=== PATIENT | male | born 1965 | race Caucasian/White ===

== ENCOUNTER 2024-10-28 03:35 | Emergency (ER) | payer OTHER, MEDICARE ==
--- NOTE | 2024-10-28 03:49 | ERPHSYRPT ---
- History of Present Illness Time Seen by Provider: 10/28/24 03:49 Source: patient, EMS Exam Limitations: no limitations Physician History: This is a morbidly obese 58-year-old white male patient who receives his medical care primarily at the [facility] and was brought to the emergency department this morning with a complaint of left ankle and left foot pain after slipping on the ice and falling. He did not hit his head and he has no complaints of head or neck pain or injury. The patient has a history of hypertension, hyperlipidemia, diabetes and gastroesophageal reflux disease. He cannot bear weight on this left ankle as it is very tender. Occurred: just prior to arrival Quality: aching Severity of Pain-Max: moderate Severity of Pain-Current: moderate Lower Extremities Pain: foot: left, ankle: left Modifying Factors: Improves With: movement Associated Symptoms: unable to bear weight Allergies/Adverse Reactions: No Known Drug Allergies Allergy (Verified 10/28/24 04:08) Home Medications: Cetirizine HCl [Zyrtec] 10 mg PO DAILY 05/28/23 [History] Empagliflozin [Jardiance] 10 mg PO DAILY 05/28/23 [History] Gabapentin 300 mg PO BID 05/28/23 [History] Omeprazole 20 mg PO DAILY 05/28/23 [History] Simvastatin [Zocor] 0.5 tab PO HS 05/28/23 [History] Tizanidine HCl [Zanaflex] 4 mg PO HS 05/28/23 [History] carvediloL [Carvedilol] 6.25 mg PO BID 05/28/23 [History] Aspirin 81 gm Chew [Baby Aspirin 81 mg Chew] 1 tab PO DAILY 10/28/24 [History] Semaglutide [Ozempic] 1 mg SQ WEEKLY 10/28/24 [History] Hx Tetanus, Diphtheria Vaccination/Date Given: No Hx Influenza Vaccination/Date Given: No Hx Pneumococcal Vaccination/Date Given: Yes Travel Risk - International Travel Have you traveled outside of the country in past 3 weeks: No - Vaccine Status Hx Covid Vaccintation/Booster/Date Given: No - Review of Systems Constitutional: No Symptoms Eyes: No Symptoms Ears, Nose, & Throat: No Symptoms Respiratory: No Symptoms Cardiac: No Symptoms Abdominal/Gastrointestinal: No Symptoms Genitourinary Symptoms: No Symptoms Musculoskeletal: Fall, Injury Skin: No Symptoms Neurological: No Symptoms Psychological: No Symptoms Endocrine: No Symptoms Hematologic/Lymphatic: No Symptoms Immunological/Allergic: No Symptoms All Other Systems: Reviewed and Negative - Past Medical History Pertinent Past Medical History: Yes Neurological History: Peripheral Neuropathy ENT History: Cataracts, Macular Degeneration, Other Cardiac History: High Cholesterol, Hypertension Respiratory History: Pneumonia, Sleep Apnea Endocrine Medical History: Diabetes Type II Musculoskeletal History: Osteoarthritis GI Medical History: GERD, Hernia History: No Pertinent History Psycho-Social History: No Pertinent History Male Reproductive Disorders: No Pertinent History Other Medical History: legal blind, bleed on rt eye, low platelets - Past Surgical History Past Surgical History: Yes Neuro Surgical History: No Pertinent History Cardiac: No Pertinent History Respiratory: No Pertinent History Gastrointestinal: Appendectomy, Other Genitourinary: No Pertinent History Musculoskeletal: No Pertinent History Male Surgical History: No Pertinent History Other Surgical History: L knee, carpal tunnel Significant Family History: no pertinent family hx - Social History Smoking Status: Former smoker - Social Determinants of Health Will the patient participate in the screening: Yes Do you worry about a steady place to live?: No In the past 12 months,have you had to go without utilities?: No Transportation Issues: No Has anyone in your support network made you feel unsafe?: No Have you or anyone in your house had to go w/o enough food: No - Nursing Vital Signs Nursing Vital Signs: Initial Vital Signs Temperature 98.7 F 10/28/24 03:48 Pulse Rate 81 10/28/24 03:48 Respiratory Rate 20 10/28/24 03:48 Blood Pressure 106/60 10/28/24 03:48 O2 Sat by Pulse Oximetry 99 10/28/24 03:48 Pain Scale Pain Intensity 4 - Physical Exam General Appearance: no apparent distress, alert, obese Eyes, Ears, Nose, Throat Exam: normal ENT inspection, moist mucous membranes Neck Exam: normal inspection, non-tender, supple, full range of motion Cardiovascular/Respiratory Exam: chest non-tender, no respiratory distress Gastrointestinal/Abdominal Exam: non-tender Back Exam: normal inspection, normal range of motion, No CVA tenderness, No vertebral tenderness Hips Exam: bilateral: non-tender, normal inspection, normal range of motion, no evidence of injury Legs Exam: bilateral leg: non-tender, normal inspection, normal range of motion, no evidence of injury Knees Exam: bilateral knee: non-tender, normal inspection, normal range of motion, no evidence of injury Ankle Exam: right ankle: non-tender, normal inspection, normal range of motion, no evidence of injury, left ankle: bone tenderness, soft tissue tenderness, swelling Foot Exam: right foot: non-tender, normal inspection, normal range of motion, no evidence of injury, left foot: bone tenderness, soft tissue tenderness, swelling Neuro/Tendon Exam: normal sensation, normal motor functions, normal tendon functions, responds to pain, no evidence tendon injury Mental Status Exam: alert, oriented x 3, cooperative Skin Exam: normal color, warm, dry SpO2 Interpretation: normal O2 Delivery: Room Air - Course Nursing assessment & vital signs reviewed: Yes Ordered Tests: Active Orders 24 hr Category Date Time Status Crutches STAT Care 10/28/24 04:39 Ordered Splint STAT Care 10/28/24 04:39 Ordered ANKLE (3 VIEWS) Stat Exams 10/28/24 03:45 Taken FOOT (MINIMUM 3 VIEWS) Stat Exams 10/28/24 03:45 Taken - Progress Progress: improved, pain not gone completely Progress Note: 10/28/24 04:01 My medical decision making and the assignment of low complexity is based on review of the patient's past medical history, review of the patient's medication list, review the patient drug allergy list, history present illness and physical findings on examination. The workup in this patient includes x-ray of the left foot and left ankle. Differential diagnosis includes but is not limited to left foot and ankle sprain versus fracture versus dislocation 10/28/24 04:40 I interpreted the following x-ray preliminary reports: Left ankle x-ray reveals minimally displaced distal fibular fracture Left foot x-ray reveals minimally displaced distal fibular fracture. Counseled pt/family regarding: diagnosis, need for follow-up, rad results Medical Desision Making - Diagnostic Testing Diagnostic test were ordered, analyzed, and reviewed by me: Yes Radiological Interpretation: Interpreted by me, Teleradiologist Report - Risk of complications The pt has a mod risk of morbidity or mortality based on: Need for prescription drug management - Departure Departure Disposition: Home Clinical Impression: Closed left fibular fracture Condition: Stable Critical Care Time: No Referrals: [facility] [Primary Care Provider] - Follow up/PCP as directed MARKIE UGTIERREZ NP [NON-STAFF PHY W/O PRIVILEGES] - Follow up/PCP as directed Additional Instructions: Ice pack to tender area 3-4 times a day for the next 2 to 3 days. If there are no contraindications, add ibuprofen 600 mg orally with food 3 times a day for 5 days. Nonweightbearing. Follow-up in the [facility] orthopedic clinic today, 10/28/2024 or tomorrow, 10/29/2024 at 8 AM for evaluation and further management. Prescriptions: Oxycodone HCl/Acetaminophen [Percocet 5-325 mg Tablet] 1 each PO Q8H PRN PRN #6 tablet MDD 3 PRN Reason: Moderate To Severe Pain
[2024-10-28 03:50] VITALS: RESP 20; TEMP 98.7
[2024-10-28 04:39] VITALS: BP 126/42; PULSE 77; O2SAT 98
[2024-10-28] MEDS ORDERED: PERCOCET TABLET 5/325MG ONE (05:07)
[2024-10-28] MEDS: PERCOCET TABLET 5/325MG PO STA ×2 (05:09→05:12)
--- NOTE | 2024-10-28 09:00 | XRAY ---
Indication: Pain following fall. Comparison: None 3 nonweightbearing views left foot demonstrates ankle fracture/subluxation reported separately. Elsewhere osteopenia and small posterior/plantar heel spurs. No other bony, articular, or soft tissue abnormalities.
--- NOTE | 2024-10-28 09:00 | XRAY ---
Indication: Pain following fall. Comparison: None 3 view left ankle demonstrates comminuted displaced fracture distal shaft fibula with bayonet apposition/alignment and soft tissue swelling. Talus moderately subluxed laterally. Elsewhere osteopenia and small heel spurs. Foot reported separately.
== END 2024-10-28 05:21 | disposition home or self-care (01) ==
LOC: ED 03:35
DX: S82.832A Other fracture of upper and lower end of left fibula, initial encounter for closed fracture (principal); W00.0XXA Fall on same level due to ice and snow, initial encounter; I10 Essential (primary) hypertension; E78.5 Hyperlipidemia, unspecified; E11.42 Type 2 diabetes mellitus with diabetic polyneuropathy; Z79.84 Long term (current) use of oral hypoglycemic drugs; Z79.85 Long-term (current) use of injectable non-insulin antidiabetic drugs; Z79.899 Other long term (current) drug therapy; Z79.891 Long term (current) use of opiate analgesic
CPT/HCPCS: 29515; 73610; 73630; 99283; A9270-GY

== ENCOUNTER 2024-11-02 06:56 | Day surgery (SDC) | payer MEDICARE ==
[2024-10-31 14:30] LABS: ABO TYPING O; Antibody Screen NEGATIVE (NEGATIVE); RH TYPING POSITIVE
[2024-11-02] MEDS ORDERED: Amidate 20 MG/10 ML IV ONE (06:57)
[2024-11-02] MEDS: Sodium Chloride 0.9% 1000 ML 1,000 ML IV SCH (07:24)
[2024-11-02] MEDS: Reglan 10 MG/2 ML IV ONE (07:41)
[2024-11-02] MEDS: CEFAZOLIN 2 GM/100 ML NaCl 2 GM/100 ML IVPB IV SCH (07:41)
[2024-11-02] MEDS: Pepcid 20 MG VIAL IV ONE (07:41)
[2024-11-02 07:58] LABS: ANION GAP 14.6 MEQ/L (5-15); Calcium 8.4 mg/dL (8.4-10.2); Creatinine 1 0.55 mg/dL (0.66-1.25); EST GLOMERULAR FILTRATION RATE 113.5 ML/MIN
[2024-11-02 08:08] LABS: Hematocrit 34.1 % (40.1-51.0); Hemoglobin 11.8 g/dL (13.7-17.5); Mean Cell Volume 90.5 fL (79.0-92.2); Mean Corpuscular Hemoglobin 31.3 pg (25.7-32.2); Mean Corpuscular Hgb Concent. 34.6 g/dL (32.3-36.5); Mean Platelet Volume 12.7 fL (9.4-12.4); Red Blood Count 3.77 x10^6/uL (4.63-6.08); Red Cell Distribution Width 14.6 % (11.6-14.4)
[2024-11-02 08:10] LABS: White Blood Count 1.7 x10^3/uL (4.23-9.07)
[2024-11-02 08:11] LABS: Platelet Count 25 x10^3/uL (163-337)
[2024-11-02 09:00] LABS: Slide Review YES
[2024-11-02] MEDS ORDERED: Marcaine Mpf 0.5% Vial 30 Ml ONE (09:19)
[2024-11-02] MEDS ORDERED: EXPAREL 133 MG/10 ML VIAL IJ ONE (09:19)
[2024-11-02] MEDS ORDERED: Versed 2 MG/2 ML Injection ONE (09:25)
[2024-11-02] MEDS ORDERED: SUBLIMAZE 100 MCG/2 ML ONE (09:26)
[2024-11-02] MEDS ORDERED: PHENYLEPHRINE HCL 10 MG in Dextrose 5%/Water IV Soln. 250 ML 249 ML IV PRN (09:54)
[2024-11-02] MEDS ORDERED: propofoL IV ONE (10:22)
[2024-11-02] MEDS ORDERED: dexAMETHasone sodium phosphate ONE (10:22)
[2024-11-02] MEDS ORDERED: ROCURONIUM BROMIDE IV ONE (10:22)
[2024-11-02] MEDS ORDERED: BRIDION 200MG/2ML IV ONE (10:22)
[2024-11-02] MEDS ORDERED: Xylocaine-Mpf 2% 5 Ml Vial ONE (10:22)
[2024-11-02] MEDS ORDERED: Zofran 4 MG/2 ML VIAL ONE (10:22)
[2024-11-02] MEDS ORDERED: DEXMEDETOMIDINE 80 MCG/20ML-NS IV ONE (10:22)
[2024-11-02] MEDS ORDERED: Sodium Chloride 0.9% 1000 ML 1,000 ML ONE (11:00)
[2024-11-02] MEDS ORDERED: Lactated Ringers 1,000 ML IV ONE (11:51)
--- NOTE | 2024-11-02 12:42 | XRAY ---
Indication: Left ankle ORIF surgery. Intraoperative fluoroscopy provided for 2 minutes 25 seconds. 18 digital spot images submitted for interpretation ultimately demonstrates lateral fixation plate/transverse screws fixating distal fibula shaft fracture in good apposition/alignment. Correlate with intraoperative findings/report.
[2024-11-02 12:55] VITALS: RESP 18; TEMP 97.6
[2024-11-02 13:23] VITALS: BP 117/50; PULSE 74; O2SAT 95
--- NOTE | 2024-11-03 17:32 | OP ---
SURGERY DATE/TIME: 11/02/2024 [id number] PREOPERATIVE DIAGNOSES: 1) Left ankle trimalleolar equivalent. 2) Syndesmotic disruption, acute. 3) Left ankle pain. 4) Difficulty with ambulation. POSTOPERATIVE DIAGNOSES: 1) Left ankle trimalleolar equivalent. 2) Syndesmotic disruption, acute. 3) Left ankle pain. 4) Difficulty with ambulation. PROCEDURES: 1) Open reduction and internal fixation of trimalleolar fracture, left ankle. 2) Syndesmotic open reduction and internal fixation. SURGEON: Yordy Garcia MD ASSISTANTS: MILENA Ash and Maureen Navarro, Surgical Elevator Worker ANESTHESIA: General plus a preoperative femoral and popliteal block. HEMOSTASIS: Thigh tourniquet set to 350 mmHg for a total of 27 total tourniquet minutes. ESTIMATED BLOOD LOSS: Approximately 10 mL. MATERIALS: Indu distal lateral fibula anatomic 6 hole, left with two 3.5 x 60 mm cortical screw for syndesmotic fixation and a combination of locking and nonlocking screws; 4-0 Monocryl and 3-0 nylon. INJECTABLES: See anesthesia report for details. INDICATIONS: The patient is a very pleasant 58-year-old male who on Friday of last week suffered a rotational injury to the left lower extremity that resulted in a pronation external rotation fracture of the left ankle with a high fibula fracture that is unstable with medial clear space widening. The syndesmosis is out and as a result, this is an unstable fracture and will require surgical intervention. Patient has been made aware of all risks, complications and benefits of surgical intervention at this time including but not limited to, infection, hematoma, seroma, possibility of delayed wound healing, non-wound healing, and possible need for further surgical intervention at a later date. No guarantees were provided as to the outcome of surgical intervention. Plenty of time was allowed for the patient to ask questions, which were answered to his apparent satisfaction. It is at this time we decided to proceed. DESCRIPTION OF PROCEDURE AND FINDINGS: The patient was brought into the PACU prior to the procedure and provided a popliteal and femoral block. See Anesthesia report for details. Once this was performed, patient was brought into the operating room and placed on the operating room table in the supine position. General anesthesia was administered until the patient was adequately sedated. A thigh tourniquet was applied to the left lower extremity and tourniquet was set to 350 mmHg. At this time, the left lower extremity was prepped and draped in the typical sterile fashion and lowered onto the surgical field. An Esmarch was utilized to exsanguinate the leg and set to 350 mmHg and inflated. Esmarch was removed and then an incision was made at the lateral aspect of the leg down to the level of bone, making sure not to damage any neurovascular structures along the way. At this time, the fracture site was identified. A dental pick was utilized to clean out the fracture site. Copious irrigation at this time was utilized to irrigate the fracture site of any remaining hematoma. Distal traction was applied and a lobster claw clamp was applied in order to gain reduction, which was achieved fairly easily with inversion of the forefoot and distraction. Once this was achieved, a 6 hole Indu anatomic locking plate was affixed to the distal aspect of the leg. Once position was assessed, a BB tack was applied proximally and distal fixation was carried out first, utilizing a cortical screw and then, lockers distally and then, a cortical screw proximally to get to good apposition of the plate to the bone and then, the remaining holes were filled with lockers proximally. Once this was accomplished and position was assessed and an external rotation stress was applied, demonstrating syndesmotic instability, the syndesmosis was then reduced utilizing a tenaculum with a small amount of pressure in order to reduce this within the incisura. Once this was fixated, 2 syndesmotic screws were applied from an orientation from lateral to medial approximately 30 degrees relative to the fibular hole to the anterior medial aspect of the tibia, respective of the incisura and the syndesmosis. Once this was accomplished, stress views were once again taken. Anterior drawer was performed, as well as a deltoid stress, which were negative. Syndesmosis was reduced and fixation was in anatomic position with Shenton's line and dime sign positive. Following this, copious amounts of sterile saline were utilized to flush the surgical site. A 4-0 Monocryl and 3-0 nylon were utilized to coapt the subcutaneous skin edges and skin respectively in a simple interrupted and horizontal mattress type fashion. From that standpoint, a dressing consisting of Betadine, Adaptic, 4 x 4, Kerlix, ABD, and a well-padded posterior splint with sugar tong was applied to the left lower extremity with the foot orthogonal relative to the longitudinal axis of the leg. Following this, patient was then reversed from anesthesia and returned to the postoperative anesthesia care unit with vital signs stable and vascular status intact. The patient handled the anesthesia, as well as the procedure, without significant complication. Postoperative orders are as indicated in the patient's discharge chart.
--- NOTE | 2024-11-04 21:52 | XRAY ---
Two minutes and 25 seconds of fluoroscopy was used in surgery for a left ankle ORIF surgery.
== END 2024-11-02 13:20 | disposition home or self-care (01) ==
LOC: SDC 06:56
PROVIDERS: ATTEND Podiatrist Foot & Ankle Surgery
DX: S82.852A Displaced trimalleolar fracture of left lower leg, initial encounter for closed fracture (principal); S93.432A Sprain of tibiofibular ligament of left ankle, initial encounter; M25.572 Pain in left ankle and joints of left foot; R26.2 Difficulty in walking, not elsewhere classified; E11.42 Type 2 diabetes mellitus with diabetic polyneuropathy
CPT/HCPCS: 01480; 27822; 27829; 36415; 64447; 64450; 73610; 76000; 76942; 80048; 82947; 83036; 85027; 86850; 86900; 86901; 93005; C1713; P9073; J0666; J0690; J1100; J2250; J2371; J2405; J2704; J3010